=== PATIENT | female | born 1990 | race Asian ===

== ENCOUNTER 2017-08-06 10:35 | Outpatient (CLI) | payer OTHER ==
[~2017-08-06] VITALS: Ht 154.9 cm; Wt 77.1 kg
[2017-08-06 10:52] VITALS: BP 145/81; Ht 154.9 cm; Wt 77.1 kg
[2017-08-06] MEDS ORDERED: PREN-17 PO (10:54)
--- NOTE | 2017-08-06 11:03 | RADRPT ---
PROCEDURE: US OB biophysical profile. CLINICAL INDICATION: evaluation TECHNIQUE: Multiple sonographic images of the pelvis were obtained. The images were reviewed on a PACS workstation. COMPARISON: No prior studies are available for comparison. FINDINGS: There is a single viable intrauterine gestation. Cardiac activity is present with 159 beats per min [place]. There is a vertex presentation. The placenta is posterior. There is no evidence of placental abruption. There is a normal amount of amniotic fluid with an AMAURY = 12.0 cm. Biophysical profile: movement 2/2 tone 2/2. breathing 2/2 AMAURY 2/2 Total 05/01 RPTAT: AA . IMPRESSION: Normal biophysical profile. Physician Cyndi Date Time Electronically viewed and signed by Physician Cyndi on 08/06/2017 11:03 /
[2017-08-06 11:19] LABS: ADD UMIC YES; UR ASCORBIC ACID NEGATIVE (NEGATIVE); UR BACTERIA MANY /HPF (NONE SEEN); UR BILIRUBIN (Dip) NEGATIVE (NEGATIVE); UR BLOOD (Dip) NEGATIVE (NEGATIVE); UR CLARITY CLEAR (CLEAR); UR COLOR YELLOW (YELLOW); UR GLUCOSE (Dip) NEGATIVE (NEGATIVE); UR KETONES (Dip) NEGATIVE (NEGATIVE); UR LEUKOCYTE ESTERASE (Dip) TRACE Leu/ul (NEGATIVE); UR NITRITE (Dip) NEGATIVE (NEGATIVE); UR RBC 3 /HPF (0-5); UR SPECIFIC GRAVITY (Dip) 1.005 (1.003-1.030); UR TOTAL PROTEIN (Dip) NEGATIVE (NEGATIVE); UR UROBILINOGEN (Dip) NEGATIVE (NEGATIVE)
[2017-08-06 12:08] LABS: BASOPHIL # 0.1 10^3/ul (0.0-0.1); BASOPHILS % 0.7 % (0.0-2.0); EOSINOPHILS # 0.2 10^3/ul (0.0-0.5); EOSINOPHILS % 2.1 % (0.0-7.0); HEMATOCRIT 36.8 % (37.0-47.0); LYMPHOCYTES # 1.5 10^3/ul (0.8-2.9); LYMPHOCYTES % 13.1 % (15.0-51.0); MEAN CORPUSCULAR HEMOGLOBIN 24.1 pg (29.0-33.0); MEAN CORPUSCULAR HGB CONC 32.6 g/dl (32.0-37.0); MEAN PLATELET VOLUME 11.5 fl (7.4-10.4); MONOCYTE # 0.9 10^3/ul (0.3-0.9); MONOCYTES % 7.8 % (0.0-11.0); NEUTROPHIL # 8.3 10^3/ul (1.6-7.5); NEUTROPHILS % 72.6 % (39.0-77.0); PLATELET COUNT 205 10^3/UL (140-415); RED BLOOD COUNT 4.97 10^6/ul (4.20-5.40); RED CELL DISTRIBUTION WIDTH 14.9 % (11.5-14.5); WHITE BLOOD COUNT 11.5 10^3/ul (4.8-10.8)
[2017-08-06 12:29] LABS: INR 0.96; PROTIME 12.8 Sec (12.2-14.2)
[2017-08-06 12:31] LABS: PARTIAL THROMBOPLASTIN TIME 26.4 Sec (25.0-35.0)
[2017-08-06 12:33] LABS: BILIRUBIN,INDIRECT 0.1 mg/dl (0-1.1); BILIRUBIN,TOTAL 0.1 mg/dl (0.2-1.3); CALCIUM 9.3 mg/dl (8.4-10.2); CREATININE 0.59 mg/dl (0.44-1.00); POTASSIUM 4.3 mmol/L (3.5-5.1); URIC ACID 5.7 mg/dl (3.1-7.9)
--- NOTE | 2017-08-06 13:45 | RADRPT ---
PROCEDURE: Obstetrical ultrasound CLINICAL INDICATION: pih TECHNIQUE: Multiple sonographic images of the pelvis were obtained. The images were reviewed on a PACS workstation. COMPARISON: None FINDINGS: The cervix is not well visualized. There is a single viable intrauterine gestation. Cardiac activity is present with 161 beats per minute. There is a vertex presentation. The placenta is posterior. There is no evidence for an abruption or placenta previa. There is a subjectively normal amount of amniotic fluid. Measurements were made in order to determine age. The results are as follows (cm): BPD =7.57 HC =27.67 AC =26.83 FL =5.74 Estimated gestational age by ultrasound of approximately 30 weeks, 3 days. The estimated date of delivery by ultrasound is 10/12/2017. Estimated gestational age by LMP of approximately 31 weeks, 1 day. The estimated date of delivery by LMP is 10/07/2017. EFW = 1593 grams (20th percentile) IMPRESSION: Single viable intrauterine gestation of approximately 30 weeks, 3 days . The estimated date of delivery is 10/12/2017 . Dating by ultrasound is within 5 days of dating by LMP. Cephalic presentation. Estimated weight is in the 20th percentile. RPTAT: EE Physician Cyndi Date Time Electronically viewed and signed by Physician Cyndi on 08/06/2017 13:45 RA/
--- NOTE | 2017-08-06 14:28 | PN ---
Triage Information Date/Time Reason for visit: Weeks of Gestation 31w 1d /Para Hypertention: induced Objective Vital Signs Date Time Temp Pulse Resp B/P Pulse Ox O2 Delivery O2 Flow Rate FiO2 08/06/17 10:52 98.1 145/81 Room Air Heart Rate Comments reactive Contractions: None Results/Medications Result Diagram: 08/06/17 1145 08/06/17 1145 Results 24 hrs Laboratory Tests Test 08/06/17 10:41 08/06/17 11:45 Urine Color YELLOW Urine Clarity CLEAR Urine pH 7.0 Urine Specific [place] 1.005 Urine Ketones NEGATIVE Urine Nitrite NEGATIVE Urine Bilirubin NEGATIVE Urine Urobilinogen NEGATIVE Urine Leukocyte Esterase TRACE A Urine Microscopic RBC 3 Urine Microscopic WBC 6 H Urine Bacteria MANY A Urine Hemoglobin NEGATIVE Urine Glucose NEGATIVE Urine Total Protein NEGATIVE White Blood Count 11.5 H Red Blood Count 4.97 Hemoglobin 12.0 Hematocrit 36.8 L Mean Corpuscular Volume 74.0 L Mean Corpuscular Hemoglobin 24.1 L Mean Corpuscular Hemoglobin Concent 32.6 Red Cell Distribution Width 14.9 H Platelet Count 205 Mean Platelet Volume 11.5 H Neutrophils % 72.6 Lymphocytes % 13.1 L Monocytes % 7.8 Eosinophils % 2.1 Basophils % 0.7 Nucleated Red Blood Cells % 0.0 Neutrophils # 8.3 H Lymphocytes # 1.5 Monocytes # 0.9 Eosinophils # 0.2 Basophils # 0.1 Nucleated Red Blood Cells # 0.0 Prothrombin Time 12.8 Prothrombin Time Ratio 1.0 INR International Normalized Ratio 0.96 Activated Partial Thromboplast Time 26.4 Fibrinogen 457.0 Sodium Level 142 Potassium Level 4.3 Chloride Level 106 Carbon Dioxide Level 21 Anion Gap 19 H Blood Urea Nitrogen 6 L Creatinine 0.59 Glucose Level 76 Uric Acid 5.7 Calcium Level 9.3 Total Bilirubin 0.1 L Direct Bilirubin 0.00 Indirect Bilirubin 0.1 Aspartate Amino Transf (AST/SGOT) 22 Alanine Aminotransferase (ALT/SGPT) 20 Alkaline Phosphatase 102 Total Protein 8.0 Albumin 4.0 Globulin 4.00 H Albumin/Globulin Ratio 1.00 Imaging Results BPP 8/8, AMAURY 12cm, efw 1593g 20% Disposition: Discharge Assessment/Plan 27 y/o at 31w 1d with high BPs, chronic vs. pih -discharge home with preeclampsia precautions, 24 hour urine -f/u with OB HENRI PEDRAZA Aug 06, 2017 14:28
--- NOTE | 2017-08-06 14:29 | TRIAGE ---
OB Triage Datetime Report Generated by CPN: 08/06/2017 14:29 Datetime: 08/06/2017 13:40 Labor Evaluation Frequency: 0 Pattern: Normal: <= 5 Contractions in 10 Minutes Resting Tone [place]: Relaxed Heart Rate FHR Baseline Rate: 150 Monitor Mode: External US Variability: Moderate 6-25 bpm Accelerations: 15X15 Decelerations: None Category: Category I Pain Presence: None/Denies Datetime: 08/06/2017 12:40 Labor Evaluation Frequency: 0 Pattern: Normal: <= 5 Contractions in 10 Minutes Resting Tone [place]: Relaxed Heart Rate FHR Baseline Rate: 155 Monitor Mode: External US Variability: Moderate 6-25 bpm Accelerations: 15X15 Decelerations: None Category: Category I Pain Presence: None/Denies Pain Type: N/A Datetime: 08/06/2017 11:25 Stage of : OB Triage Labor Evaluation Frequency: 0 Monitor Mode: External Pattern: Normal: <= 5 Contractions in 10 Minutes Heart Rate FHR Baseline Rate: 155 Monitor Mode: External US Variability: Moderate 6-25 bpm Accelerations: 15X15 Decelerations: None Category: Category I Pain Assessment Pain Scale: 0 Pain Presence: None/Denies Pain Goal: 0 Datetime: 08/06/2017 10:56 Stage of : OB Triage Assessment Type: Triage Maternal Assessment Level of Consciousness: Fully Conscious DTR's/Clonus: DTRs 2+; No Clonus Headache: Denies Blurred Vision: No Respiratory Effort: Unlabored; Regular Rhythm; Equal Expansion Breath Sounds, Left: Clear and Equal Breath Sounds, Right: Clear and Equal Nausea/Vomiting: Denies RUQ Epigastric Pain: Denies Lower Extremities Edema: None Degree: None Upper Extremities Edema: None Degree: None Facial Edema: None Temperature Route: Oral Fall Risk Assessment History of Falling: (0) No Secondary Diagnosis: (0) No Ambulatory Aid: (0) Bedrest/Nurse Assist IV Therapy: (0) No Gait: (0) Normal/Bedrest/Immobile Mental Status: (0) Oriented to Own Ability Fall Score: 0 Fall Risk Score Definition: No Risk: No action required Labor Evaluation Frequency: INITIAL PLACEMENT Monitor Mode: External Monitor Mode: External US Pain Assessment Pain Scale: 0 Pain Presence: None/Denies Pain Type: N/A Datetime: 08/06/2017 10:55 Time of Arrival: 08/06/2017 10:30 EGA: 31.1 Arrived By: Ambulatory Arrived From: Dr. Flower Chief Complaint: SENT FROM CLINIC FOR PIH WORK UP Movement: Present Contractions: Denies/Absent Rupture of Membranes: Denies Vaginal Bleeding: None Vaginal Discharge: Denies Recent Sexual Intercouse: Denies Abdominal Trauma: Not Applicable Patient Complaints: Other Initial Plan: EFMX2, OIH WORK UP
[2017-08-07] MEDS ORDERED: CALC600T5 PO (16:15)
== END 2017-08-06 14:40 | disposition home or self-care (01) ==
LOC: EDBD → L-D 10:35 → OBT 10:35
PROVIDERS: ATTEND Obstetrics & Gynecology
DX: O11.3 Pre-existing hypertension with pre-eclampsia, third trimester (principal); Z3A.31 31 weeks gestation of pregnancy
CPT/HCPCS: 76816; 76818; 80053; 81001; 84560; 85025; 85384; 85610; 85730; Z7500; G0463

== ENCOUNTER 2017-08-07 15:36 | Outpatient (CLI) | payer OTHER ==
[~2017-08-07] VITALS: Ht 154.9 cm; Wt 75.4 kg
[~2017-08-07 15:36] MED LIST: PREN-17 PO
[2017-08-07 16:13] VITALS: BP 125/83; PULSE 113; Ht 154.9 cm; Wt 75.4 kg
[2017-08-07] MEDS ORDERED: CALC600T5 PO (16:15)
[2017-08-07] MEDS ORDERED: TERBUTALINE 1 MG/ML INJ SC ONE (17:00)
[2017-08-07] MEDS ORDERED: BETAMET NA PHOS/AC(6 MG/ML) 5ML INJ IM ONE ×2 (17:00)
[2017-08-07] MEDS ORDERED: LACTATED RINGER'S 1,000 ML IV SCH (17:00)
[2017-08-07] MEDS ORDERED: NIFEdipine 10 MG CAP PO ONE (17:00)
[2017-08-07 17:07] LABS: SCRET 0.63 mg/dl (0.44-1.00)
--- NOTE | 2017-08-07 17:18 | PN ---
Triage Information Date/Time August 07, 2017 Reason for visit: Referred back for bringing her 24 hour urine collection noticed to have uterine contractions Weeks of Gestation 32+ /Para 1 para 0 Diabetes: none Hypertention: induced Additional information Patient denies headache blurred vision or epigastric pain As total urine protein of 481 mg in 24 hours Objective Vital Signs Date Time Temp Pulse Resp B/P Pulse Ox O2 Delivery O2 Flow Rate FiO2 08/07/17 16:13 97.9 113 125/83 Heart Rate: 140's Heart Rate Comments Reactive Contractions: 6-10 Minutes Apart Exam Long and closed Results/Medications Result Diagram: 08/07/17 1615 Results 24 hrs Laboratory Tests Test 08/07/17 16:00 08/07/17 16:15 Urine Random Creatinine 29.62 Urine Collection Duration 24 Urine Total Volume 24 Hours 3700 Urine Creatinine Timed 24 Creatinine Clearance 120.8 Urine Total Volume (Protein) 3700 Urine Total Protein 24 Hour 481.0 H Creatinine 0.63 Medications Current Medications Lactated Ringer's (Lr) 1,000 ml @ 250 mls/hr Q4H IV Last administered on 08/07t 17:02; Admin Dose 250 MLS/HR; Start 08/07/17 at 17:00 Imaging Results Pending Assessment/Plan Patient stopped idania after subcutaneous terbutaline will DC home on p.o. nifedipine Biweekly antepartum testing Continue on p.o. nifedipine until 37 week Consider delivering at 37 weeks Provide steroids in this admission WAQAR ACKERMAN MD Aug 07, 2017 17:18
--- NOTE | 2017-08-07 17:31 | RADRPT ---
PROCEDURE: Limited obstetric ultrasound CLINICAL INDICATION: Pain TECHNIQUE: Multiple transverse and longitudinal grayscale images of the pelvis were obtained shen sabdominally and transvaginally.. COMPARISON: US 08/06/2017 FINDINGS: The cervix is closed with a length of 3.9 cm. There is a single viable intrauterine gestation. Cardiac activity is present with 154 beats per min [place]. There is a vertex presentation. The placenta is posterior. There is no evidence for an abruption or placenta previa. RPTAT: AA IMPRESSION: Cervix length measures 3.9 cm. .Tono Marie MD, Date Time Electronically viewed and signed by .Tono Marie MD, on 08/07/2017 17:31 .S/
--- NOTE | 2017-08-08 04:11 | TRIAGE ---
OB Triage Datetime Report Generated by CPN: 08/08/2017 04:11 Datetime: 08/07/2017 21:43 Stage of : OB Triage Labor Evaluation Frequency: Irregular Monitor Mode: External Duration (sec)2399: 40-80 Quality: Mild Pattern: Normal: <= 5 Contractions in 10 Minutes Resting Tone [place]: Relaxed Heart Rate FHR Baseline Rate: 150 Monitor Mode: External US Variability: Moderate 6-25 bpm Accelerations: 15X15 Decelerations: Variable Category: Category II Pain Assessment Pain Scale: 0 Pain Presence: None/Denies Pain Type: N/A Pain Assessment Comments: Pt continues to deny any pain or cramping. Datetime: 08/07/2017 21:41 Stage of : OB Triage Assessment Type: Triage Datetime: 08/07/2017 21:00 Stage of : OB Triage Labor Evaluation Frequency: Irregular Monitor Mode: External Duration (sec)2399: 40-100 Quality: Mild Pattern: Normal: <= 5 Contractions in 10 Minutes Resting Tone [place]: Relaxed Heart Rate FHR Baseline Rate: 155 Monitor Mode: External US FHR Baseline Changes: No Baseline Change Variability: Moderate 6-25 bpm Accelerations: 15X15 Decelerations: None Category: Category I Comments: Periods of loss of contact Datetime: 08/07/2017 20:58 Stage of : OB Triage Datetime: 08/07/2017 20:00 Stage of : OB Triage Labor Evaluation Frequency: 1-11 Monitor Mode: External Duration (sec)2399: 40-120 Quality: Mild Pattern: Normal: <= 5 Contractions in 10 Minutes Resting Tone [place]: Relaxed Heart Rate FHR Baseline Rate: 155 Monitor Mode: External US FHR Baseline Changes: No Baseline Change Variability: Moderate 6-25 bpm Accelerations: 15X15 Decelerations: None Category: Category I Datetime: 08/07/2017 19:25 Stage of : OB Triage Temperature Route: Oral Pain Assessment Pain Scale: 0 Pain Presence: None/Denies Pain Type: N/A Pain Assessment Comments: Pt denies any pain or cramping Datetime: 08/07/2017 19:00 Stage of : OB Triage Labor Evaluation Frequency: Irregular Monitor Mode: External Duration (sec)2399: 40-60 Quality: Mild Pattern: Normal: <= 5 Contractions in 10 Minutes Resting Tone [place]: Relaxed Heart Rate FHR Baseline Rate: 155 Monitor Mode: External US FHR Baseline Changes: No Baseline Change Variability: Moderate 6-25 bpm Accelerations: 15X15 Decelerations: None Category: Category I Datetime: 08/07/2017 18:25 Assessment Type: Triage Maternal Assessment Level of Consciousness: Fully Conscious DTR's/Clonus: DTRs 2+; No Clonus Headache: Denies Blurred Vision: No Respiratory Effort: Unlabored; Regular Rhythm; Equal Expansion Breath Sounds, Left: Clear and Equal Breath Sounds, Right: Clear and Equal Nausea/Vomiting: Denies RUQ Epigastric Pain: Denies Lower Extremities Edema: None Degree: None Upper Extremities Edema: None Degree: None Facial Edema: None Fall Risk Assessment History of Falling: (0) No Secondary Diagnosis: (0) No Ambulatory Aid: (0) Bedrest/Nurse Assist IV Therapy: (0) No Gait: (0) Normal/Bedrest/Immobile Mental Status: (0) Oriented to Own Ability Fall Score: 0 Fall Risk Score Definition: No Risk: No action required Datetime: 08/07/2017 18:00 Labor Evaluation Frequency: 0 Monitor Mode: External Pattern: Normal: <= 5 Contractions in 10 Minutes Resting Tone [place]: Relaxed Heart Rate FHR Baseline Rate: 155 Monitor Mode: External US Accelerations: None Decelerations: None Category: Category II Pain Assessment Pain Scale: 0 Pain Presence: None/Denies Pain Type: N/A Pain Goal: 3 Pain Relief Measures: Comfort Measures Datetime: 08/07/2017 17:28 Labor Evaluation Frequency: 0 Monitor Mode: External Resting Tone [place]: Relaxed Heart Rate FHR Baseline Rate: 155 Monitor Mode: External US Variability: Moderate 6-25 bpm Accelerations: 10X10 Decelerations: None Category: Category I Pain Assessment Pain Scale: 0 Pain Presence: None/Denies Pain Type: N/A Pain Goal: 3 Pain Relief Measures: Comfort Measures Datetime: 08/07/2017 16:59 Monitor Mode: External US Comments: loss of contact Datetime: 08/07/2017 16:36 Stage of : OB Triage Datetime: 08/07/2017 16:34 Stage of : OB Triage Datetime: 08/07/2017 16:08 Stage of : OB Triage Assessment Type: Triage Maternal Assessment Level of Consciousness: Fully Conscious DTR's/Clonus: DTRs 2+; No Clonus Headache: Denies Blurred Vision: No Respiratory Effort: Unlabored; Regular Rhythm; Equal Expansion Breath Sounds, Left: Clear and Equal Breath Sounds, Right: Clear and Equal Nausea/Vomiting: Denies RUQ Epigastric Pain: Denies Facial Edema: None Temperature Route: Axillary Fall Risk Assessment History of Falling: (0) No Secondary Diagnosis: (0) No Ambulatory Aid: (0) Bedrest/Nurse Assist IV Therapy: (0) No Gait: (0) Normal/Bedrest/Immobile Mental Status: (0) Oriented to Own Ability Fall Score: 0 Fall Risk Score Definition: No Risk: No action required Labor Evaluation Frequency: 8-10 Monitor Mode: External Duration (sec)2399: 70-80 Quality: Mild Pattern: Normal: <= 5 Contractions in 10 Minutes Resting Tone [place]: Relaxed Heart Rate FHR Baseline Rate: 145 Monitor Mode: External US Variability: Moderate 6-25 bpm Accelerations: 10X10 Decelerations: None Category: Category I Pain Assessment Pain Scale: 0 Pain Presence: None/Denies Pain Type: N/A Pain Goal: 3 Pain Relief Measures: Comfort Measures Datetime: 08/07/2017 16:06 Time of Arrival: 08/07/2017 15:24 EGA: 31.2 Arrived By: Ambulatory Arrived From: Home Chief Complaint: FOLLOW UP WITH 24 HOUR URINE, DENIES BLEEDING, LEAKING OR UC'S Movement: Present Contractions: Denies/Absent Rupture of Membranes: Denies Vaginal Bleeding: None Vaginal Discharge: Denies Recent Sexual Intercouse: Denies Abdominal Trauma: Not Applicable Patient Complaints: None Time Provider Notified: 08/07/2017 15:51 Provider Notified: Initial Plan: MONITOR, Datetime: 08/07/2017 15:51 Stage of : OB Triage Datetime: 08/06/2017 10:56 Fall Score: 0 Fall Risk Score Definition: No Risk: No action required Datetime: 08/06/2017 10:55 EGA: 31.1
[2017-08-08] MEDS ORDERED: BETAMET NA PHOS/AC(6 MG/ML) 5ML INJ IM ONE (17:30)
[2017-08-08] MEDS ORDERED: NIFE10CA19 PO (18:08)
== END 2017-08-07 21:58 | disposition home or self-care (01) ==
LOC: OBT 15:36 → L-D 15:37 → OBT 21:58
PROVIDERS: ATTEND Obstetrics & Gynecology
DX: O62.9 Abnormality of forces of labor, unspecified (principal); Z3A.32 32 weeks gestation of pregnancy; O16.3 Unspecified maternal hypertension, third trimester
CPT/HCPCS: 76817; 82565; 82575; 84156; J0702; J3105; J7120; Z7610

== ENCOUNTER 2017-08-08 17:16 | Outpatient (CLI) | payer OTHER ==
[~2017-08-08] VITALS: Ht 154.9 cm; Wt 75.4 kg
[~2017-08-08 17:16] MED LIST changes: +CALC600T5 PO
[2017-08-08 17:59] VITALS: Ht 154.9 cm; Wt 75.4 kg
[2017-08-08 18:00] VITALS: BP 118/64; PULSE 125; RESP 18
[2017-08-08] MEDS ORDERED: BETAMET NA PHOS/AC(6 MG/ML) 5ML INJ IM ONE (18:00)
--- NOTE | 2017-08-08 18:05 | PN ---
Triage Information Date/Time 08/08/2017 Reason for visit: here for 2nd dose of steroids Weeks of Gestation 31+ /Para 1/0 Diabetes: none Hypertention: induced Objective Heart Rate: 140's Contractions: None Exam deferred Results/Medications Medications betamethasone given Disposition: Discharge Assessment/Plan F/U with biweekly NST and BPP WAQAR ACKERMAN MD Aug 08, 2017 18:05
[2017-08-08] MEDS ORDERED: NIFE10CA19 PO (18:08)
--- NOTE | 2017-08-08 20:24 | TRIAGE ---
OB Triage Datetime Report Generated by CPN: 08/08/2017 20:24 Datetime: 08/08/2017 19:26 Stage of : OB Triage Datetime: 08/08/2017 19:22 Stage of : OB Triage FHR Baseline Rate: 145 Monitor Mode: External US Variability: Moderate 6-25 bpm Accelerations: 15X15 Decelerations: None Category: Category I Comments: APPROPRIATE FOR GESTATIONAL AGE. Datetime: 08/08/2017 18:19 Frequency: none Monitor Mode: External FHR Baseline Rate: 140 Monitor Mode: External US Variability: Moderate 6-25 bpm Accelerations: 15X15 Decelerations: None Pain Scale: 0 Pain Presence: None/Denies Pain Type: N/A Pain Goal: 0 Membrane Status: Intact Datetime: 08/08/2017 17:46 Level of Consciousness: Fully Conscious DTR's/Clonus: DTRs 2+; No Clonus Headache: Denies Blurred Vision: No Respiratory Effort: Unlabored; Regular Rhythm; Equal Expansion Breath Sounds, Left: Clear and Equal Breath Sounds, Right: Clear and Equal Nausea/Vomiting: Denies RUQ Epigastric Pain: Denies Lower Extremities Edema: None Degree: None Upper Extremities Edema: None Degree: None Facial Edema: None History of Falling: (0) No Secondary Diagnosis: (0) No Ambulatory Aid: (0) Bedrest/Nurse Assist IV Therapy: (0) No Gait: (0) Normal/Bedrest/Immobile Mental Status: (0) Oriented to Own Ability Fall Score: 0 Fall Risk Score Definition: No Risk: No action required Datetime: 08/08/2017 17:45 Frequency: none Monitor Mode: External FHR Baseline Rate: 160 Monitor Mode: External US Variability: Minimal - Undetectable to <=5 bpm Accelerations: 15X15 Decelerations: None Pain Scale: 0 Pain Presence: None/Denies Pain Type: N/A Pain Goal: 0 Membrane Status: Intact Datetime: 08/08/2017 17:25 Monitor Mode: External Contraction Comments: DENIES FHR Baseline Rate: 156 (Annotations: auscultated) Monitor Mode: External US Comments: PLACED ON MONITOR BY A RONA ANDERSON Pain Scale: 0 Pain Presence: None/Denies Pain Type: N/A Pain Goal: 0 Datetime: 08/08/2017 17:10 Time of Arrival: 08/08/2017 17:10 EGA: 31.3 Arrived By: Ambulatory Arrived From: Home Chief Complaint: PT WAS SEEN YESTERDAY IN TRIAGE WHEN SHE RETURNED A 24 HR URINE( TOTAL PROTEIN 48 1;CREATININE CLEARANCE 12.8), UCS NOTED _ PT RECEIVED IV HYDRATION, TERBUTALINE _ BETAMETHASONE. WAS SENT HOME WITH A PO PROCARDIA PRESCRIPTION WHICH SHE TOOK 3 X TODAY @ 0500, 1100 _ 1700. RETURNED F OR 2ND DOSE OF BETAMETHASONE _ "LABWORK" Movement: Present Contractions: Denies/Absent Rupture of Membranes: Denies Vaginal Bleeding: None Vaginal Discharge: Denies Recent Sexual Intercouse: Denies Abdominal Trauma: Not Applicable Patient Complaints: None Time Provider Notified: 08/08/2017 17:50 Initial Plan: BETAMETHASONE #2 DOSE, MONITOR FOR UCS, LABWORK ORDERED Datetime: 08/07/2017 20:15 Stage of : OB Triage Datetime: 08/07/2017 18:25 Fall Score: 0 Fall Risk Score Definition: No Risk: No action required Datetime: 08/07/2017 16:08 Fall Score: 0 Fall Risk Score Definition: No Risk: No action required Datetime: 08/07/2017 16:06 EGA: 31.2 Datetime: 08/06/2017 10:56 Fall Score: 0 Fall Risk Score Definition: No Risk: No action required Datetime: 08/06/2017 10:55 EGA: 31.1
== END 2017-08-08 19:35 | disposition home or self-care (01) ==
LOC: OBT 17:16 → L-D 17:18 → OBT 19:35
PROVIDERS: ATTEND Obstetrics & Gynecology
DX: O26.893 Other specified pregnancy related conditions, third trimester (principal); Z79.52 Long term (current) use of systemic steroids; Z3A.31 31 weeks gestation of pregnancy
CPT/HCPCS: 96372; Z7500; G0463

== ENCOUNTER 2017-09-13 16:39 | Outpatient (CLI) | payer OTHER ==
[~2017-09-13] VITALS: Ht 154.9 cm; Wt 79.7 kg
[~2017-09-13 16:39] MED LIST changes: +NIFE10CA19 PO
[2017-09-13 16:44] VITALS: Ht 154.9 cm; Wt 79.7 kg
[2017-09-13 17:00] VITALS: BP 125/75; PULSE 93; RESP 18
[2017-09-13] MEDS ORDERED: PREN-93 PO (17:03)
[2017-09-13 17:38] LABS: BASOPHILS % 0.4 % (0.0-2.0); EOSINOPHILS # 0.2 10^3/ul (0.0-0.5); EOSINOPHILS % 1.6 % (0.0-7.0); HEMATOCRIT 35.3 % (37.0-47.0); HEMOGLOBIN 11.8 g/dl (12.0-16.0); LYMPHOCYTES # 1.3 10^3/ul (0.8-2.9); LYMPHOCYTES % 12.9 % (15.0-51.0); MEAN CORPUSCULAR HEMOGLOBIN 24.4 pg (29.0-33.0); MEAN CORPUSCULAR HGB CONC 33.4 g/dl (32.0-37.0); MEAN CORPUSCULAR VOLUME 73.1 fl (82.0-101.0); MEAN PLATELET VOLUME 11.4 fl (7.4-10.4); MONOCYTES % 9.7 % (0.0-11.0); NEUTROPHIL # 7.6 10^3/ul (1.6-7.5); NEUTROPHILS % 73.1 % (39.0-77.0); PLATELET COUNT 205 10^3/UL (140-415); RED BLOOD COUNT 4.83 10^6/ul (4.20-5.40); RED CELL DISTRIBUTION WIDTH 15.1 % (11.5-14.5); WHITE BLOOD COUNT 10.4 10^3/ul (4.8-10.8)
--- NOTE | 2017-09-13 17:44 | RADRPT ---
PROCEDURE: US OB. CLINICAL INDICATION: Hypertension TECHNIQUE: Multiple sonographic images of the pelvis were obtained. The images were reviewed on a PACS workstation. COMPARISON: 08/06/2017 FINDINGS: There is a single live intrauterine . cardiac activity is identified at a rate of 15 7 beats per minute. presentation is cephalic. Placenta is posterior grade II. Biophysical profile score is as follows: Breathing 2 Movements 2 Tone 2 Fluid volume 2 Amniotic fluid index = 11.67 cm Total biophysical profile score = 8/8 IMPRESSION: Biophysical profile score = 8 RPTAT: HH .J Luis Jackson MD, MD Date Time Electronically viewed and signed by .J Luis Jackson MD, on 09/13/2017 17:44 .W/
[2017-09-13 17:52] LABS: ADD UMIC YES; UR ASCORBIC ACID 20 mg/dL (NEGATIVE); UR BACTERIA MODERATE /HPF (NONE SEEN); UR BILIRUBIN (Dip) NEGATIVE (NEGATIVE); UR BLOOD (Dip) 2+ mg/dL (NEGATIVE); UR CLARITY CLEAR (CLEAR); UR COLOR YELLOW (YELLOW); UR GLUCOSE (Dip) NEGATIVE (NEGATIVE); UR KETONES (Dip) NEGATIVE (NEGATIVE); UR LEUKOCYTE ESTERASE (Dip) NEGATIVE Leu/ul (NEGATIVE); UR MUCUS FEW /HPF (NONE SEEN); UR NITRITE (Dip) NEGATIVE (NEGATIVE); UR RBC 1 /HPF (0-5); UR SPECIFIC GRAVITY (Dip) 1.012 (1.003-1.030); UR TOTAL PROTEIN (Dip) NEGATIVE (NEGATIVE); UR UROBILINOGEN (Dip) NEGATIVE (NEGATIVE)
[2017-09-13 18:10] LABS: ALBUMIN 3.7 g/dl (3.3-4.9); ALBUMIN/GLOBULIN RATIO 0.9; CALCIUM 9.5 mg/dl (8.4-10.2); CREATININE 0.7 mg/dl (0.44-1.00); POTASSIUM 4.2 mmol/L (3.5-5.1); TOTAL PROTEIN 7.8 g/dl (6.1-8.1)
--- NOTE | 2017-09-13 21:37 | TRIAGE ---
OB Triage Datetime Report Generated by CPN: 09/13/2017 21:37 Datetime: 09/13/2017 20:37 Stage of : OB Triage Datetime: 09/13/2017 20:00 Labor Evaluation Frequency: IRREGULAR Monitor Mode: External Duration (sec)2399: 40-100 Quality: Mild Pattern: Normal: <= 5 Contractions in 10 Minutes Resting Tone [place]: Relaxed Heart Rate FHR Baseline Rate: 145 Monitor Mode: External US FHR Baseline Changes: No Baseline Change Variability: Moderate 6-25 bpm Accelerations: 15X15 Decelerations: Variable Category: Category I Datetime: 09/13/2017 19:55 Vaginal Exam Dilatation (cms): 0.0 Effacement (%): 0 Station: -3 Exam By: Miki TORRES RN Vaginal Bleeding: None Cervix, Consistency: Firm Cervix, Position: Posterior Datetime: 09/13/2017 19:20 Assessment Type: Ongoing Assessment Maternal Assessment Level of Consciousness: Fully Conscious DTR's/Clonus: DTRs 2+; No Clonus Headache: Denies Blurred Vision: No Respiratory Effort: Unlabored; Regular Rhythm; Equal Expansion Breath Sounds, Left: Clear and Equal Breath Sounds, Right: Clear and Equal Nausea/Vomiting: Denies RUQ Epigastric Pain: Denies Lower Extremities Edema: None Degree: None Upper Extremities Edema: None Degree: None Facial Edema: None Fall Risk Assessment History of Falling: (0) No Secondary Diagnosis: (0) No Ambulatory Aid: (0) Bedrest/Nurse Assist IV Therapy: (0) No Gait: (0) Normal/Bedrest/Immobile Mental Status: (0) Oriented to Own Ability Fall Score: 0 Fall Risk Score Definition: No Risk: No action required Datetime: 09/13/2017 18:52 Labor Evaluation Frequency: IRREG Monitor Mode: External Duration (sec)2399: 50-70 Pattern: Normal: <= 5 Contractions in 10 Minutes Resting Tone [place]: Relaxed Heart Rate FHR Baseline Rate: 130 Monitor Mode: External US Variability: Moderate 6-25 bpm Accelerations: 15X15 Decelerations: Variable Category: Category II Pain Assessment Pain Presence: None/Denies Datetime: 09/13/2017 18:00 Labor Evaluation Frequency: X1 Monitor Mode: External Duration (sec)2399: 100 Pattern: Normal: <= 5 Contractions in 10 Minutes Resting Tone [place]: Relaxed Heart Rate FHR Baseline Rate: 140 Monitor Mode: External US Variability: Moderate 6-25 bpm Accelerations: 15X15 Decelerations: Variable Category: Category II Datetime: 09/13/2017 17:14 Assessment Type: Admission Assessment Maternal Assessment Level of Consciousness: Fully Conscious DTR's/Clonus: DTRs 2+; No Clonus Headache: Denies Blurred Vision: No Respiratory Effort: Unlabored; Regular Rhythm; Equal Expansion Breath Sounds, Left: Clear and Equal Breath Sounds, Right: Clear and Equal Nausea/Vomiting: Denies RUQ Epigastric Pain: Denies Lower Extremities Edema: None Degree: None Upper Extremities Edema: None Degree: None Facial Edema: None Fall Risk Assessment History of Falling: (0) No Secondary Diagnosis: (0) No Ambulatory Aid: (0) Bedrest/Nurse Assist IV Therapy: (0) No Gait: (0) Normal/Bedrest/Immobile Mental Status: (0) Oriented to Own Ability Fall Score: 0 Fall Risk Score Definition: No Risk: No action required Datetime: 09/13/2017 17:09 Time of Arrival: 09/13/2017 16:35 EGA: 36.4 Arrived By: Ambulatory Arrived From: Home Chief Complaint: PT. CAME IN WITH OB TRIAGE REFERRAL FOR PIH, NST, BPP FROM YESTERDAY AT [facility] TO ELEVATED BP'S. Movement: Present Contractions: Denies/Absent Rupture of Membranes: Denies Vaginal Bleeding: None Vaginal Discharge: Denies Recent Sexual Intercouse: Denies Abdominal Trauma: Not Applicable Patient Complaints: None Time Provider Notified: 09/13/2017 18:20 Provider Notified: LEONARD Initial Plan: TOCO/ US, PIH LABS, BPP Datetime: 09/13/2017 16:50 Pain Assessment Pain Presence: None/Denies Datetime: 09/13/2017 16:48 Stage of : OB Triage Datetime: 08/08/2017 17:46 Fall Score: 0 Fall Risk Score Definition: No Risk: No action required Datetime: 08/08/2017 17:10 EGA: 31.3 Datetime: 08/07/2017 18:25 Fall Score: 0 Fall Risk Score Definition: No Risk: No action required Datetime: 08/07/2017 16:08 Fall Score: 0 Fall Risk Score Definition: No Risk: No action required Datetime: 08/07/2017 16:06 EGA: 31.2 Datetime: 08/06/2017 10:56 Fall Score: 0 Fall Risk Score Definition: No Risk: No action required Datetime: 08/06/2017 10:55 EGA: 31.1
--- NOTE | 2017-09-13 22:15 | PN ---
Triage Information Date/Time 09/13/17 Reason for visit: HTN Weeks of Gestation 36w 4d /Para primigravida Diabetes: none Hypertention: induced Additional information scheduled for induction of labor on 09/18/17 been on labetalol 200mg BID for the last 2mo Objective Vital Signs Date Time Temp Pulse Resp B/P Pulse Ox O2 Delivery O2 Flow Rate FiO2 09/13/17 17:00 97.9 93 18 125/75 Room Air Exam VE closed /long/-3 Results/Medications Result Diagram: 09/13/175 09/13/17 165 Results 24 hrs Laboratory Tests Test 09/13/17 16:55 09/13/17 17:00 White Blood Count 10.4 Red Blood Count 4.83 Hemoglobin 11.8 L Hematocrit 35.3 L Mean Corpuscular Volume 73.1 L Mean Corpuscular Hemoglobin 24.4 L Mean Corpuscular Hemoglobin Concent 33.4 Red Cell Distribution Width 15.1 H Platelet Count 205 Mean Platelet Volume 11.4 H Neutrophils % 73.1 Lymphocytes % 12.9 L Monocytes % 9.7 Eosinophils % 1.6 Basophils % 0.4 Nucleated Red Blood Cells % 0.0 Neutrophils # 7.6 H Lymphocytes # 1.3 Monocytes # 1.0 H Eosinophils # 0.2 Basophils # 0.0 Nucleated Red Blood Cells # 0.0 Sodium Level 135 Potassium Level 4.2 Chloride Level 101 Carbon Dioxide Level 24 Anion Gap 14 Blood Urea Nitrogen 9 Creatinine 0.70 Glucose Level 93 Uric Acid 6.0 Calcium Level 9.5 Total Bilirubin 0.0 L Direct Bilirubin 0.00 Indirect Bilirubin 0.0 Aspartate Amino Transf (AST/SGOT) 30 Alanine Aminotransferase (ALT/SGPT) 31 Alkaline Phosphatase 140 H Total Protein 7.8 Albumin 3.7 Globulin 4.10 H Albumin/Globulin Ratio 0.90 Urine Color YELLOW Urine Clarity CLEAR Urine pH 6.0 Urine Specific [place] 1.012 Urine Ketones NEGATIVE Urine Nitrite NEGATIVE Urine Bilirubin NEGATIVE Urine Urobilinogen NEGATIVE Urine Leukocyte Esterase NEGATIVE Urine Microscopic RBC 1 Urine Microscopic WBC 4 Urine Bacteria MODERATE Urine Mucus FEW A Urine Hemoglobin 2+ H Urine Glucose NEGATIVE Urine Total Protein NEGATIVE Imaging Results BPP8/8 AMAURY 11.67 Disposition: Discharge Assessment/Plan IUP 36w4d PIH/ ch HTN discharge home today RTH in 3days for repeat NST and BPP MARC RADFORD MD Sep 13, 2017 22:15
== END 2017-09-13 20:37 | disposition home or self-care (01) ==
LOC: OBT 16:39 → L-D 16:41 → OBT 20:37
PROVIDERS: ATTEND Obstetrics & Gynecology
DX: O13.3 Gestational [pregnancy-induced] hypertension without significant proteinuria, third trimester (principal); Z3A.36 36 weeks gestation of pregnancy
CPT/HCPCS: 76818; 80053; 81001; 84560; 85025; Z7500; G0463

== ENCOUNTER 2017-09-16 09:53 | Outpatient (CLI) | payer OTHER ==
[~2017-09-16] VITALS: Ht 154.9 cm; Wt 77.8 kg
[~2017-09-16 09:53] MED LIST changes: +PREN-93 PO
[2017-09-16 10:17] VITALS: Ht 154.9 cm; Wt 77.8 kg
[2017-09-16] MEDS ORDERED: LABE200T3 PO (10:17)
[2017-09-16] MEDS ORDERED: FER325 PO (10:17)
[2017-09-16 10:18] VITALS: BP 118/77; PULSE 110; RESP 18
--- NOTE | 2017-09-16 11:00 | RADRPT ---
PROCEDURE: US biophysical profile. CLINICAL INDICATION: Decreased motion. TECHNIQUE: Multiple sonographic images of the uterus were obtained. The images were revi ewed on a PACS workstation. COMPARISON: September 13, 2017. FINDINGS: There is a single live intrauterine gestation. heart rate is 146 beats per minute. The position is cephalic. The placenta is posterior grade II with no abruption or previa. The AMAURY is 10.1 cm. (Normal = 5-20 cm.) Breathing Movement: 2 Gross Body Movement: 2 Tone: 2 Qualitative Amniotic Fluid Volume: 2 TOTAL: 8 IMPRESSION: 1. The biophysical score is 8/8. RPTAT: QQ .Sohail Manzanares MD, MD Date Time Electronically viewed and signed by .Sohail Manzanares MD, on 09/16/2017 10:59 .R/
--- NOTE | 2017-09-16 11:47 | TRIAGE ---
OB Triage Datetime Report Generated by CPN: 09/16/2017 11:47 Datetime: 09/16/2017 10:10 Assessment Type: Triage Maternal Assessment Level of Consciousness: Fully Conscious DTR's/Clonus: DTRs 2+; No Clonus Headache: Denies Blurred Vision: No Respiratory Effort: Unlabored; Regular Rhythm; Equal Expansion Breath Sounds, Left: Clear and Equal Breath Sounds, Right: Clear and Equal Nausea/Vomiting: Denies RUQ Epigastric Pain: Denies Lower Extremities Edema: None Degree: None Upper Extremities Edema: None Degree: None Facial Edema: None Fall Risk Assessment History of Falling: (0) No Secondary Diagnosis: (0) No Ambulatory Aid: (0) Bedrest/Nurse Assist IV Therapy: (0) No Gait: (0) Normal/Bedrest/Immobile Mental Status: (0) Oriented to Own Ability Fall Score: 0 Fall Risk Score Definition: No Risk: No action required Datetime: 09/16/2017 10:09 Labor Evaluation Monitor Mode: External Heart Rate Monitor Mode: External US Datetime: 09/16/2017 09:59 Time of Arrival: 09/16/2017 09:46 EGA: 37.0 Arrived By: Ambulatory Arrived From: Home Chief Complaint: PT HERE FOR NST/BPP FOR HBP Movement: Present Contractions: Denies/Absent Rupture of Membranes: Denies Vaginal Bleeding: None Vaginal Discharge: Denies Recent Sexual Intercouse: Denies Abdominal Trauma: Not Applicable Patient Complaints: None Time Provider Notified: 09/16/2017 10:25 Provider Notified: LEONARD Initial Plan: NST/BPP Datetime: 09/13/2017 19:20 Fall Score: 0 Fall Risk Score Definition: No Risk: No action required Datetime: 09/13/2017 17:14 Fall Score: 0 Fall Risk Score Definition: No Risk: No action required Datetime: 09/13/2017 17:09 EGA: 36.4 Datetime: 08/08/2017 17:46 Fall Score: 0 Fall Risk Score Definition: No Risk: No action required Datetime: 08/08/2017 17:10 EGA: 31.3 Datetime: 08/07/2017 18:25 Fall Score: 0 Fall Risk Score Definition: No Risk: No action required Datetime: 08/07/2017 16:08 Fall Score: 0 Fall Risk Score Definition: No Risk: No action required Datetime: 08/07/2017 16:06 EGA: 31.2 Datetime: 08/06/2017 10:56 Fall Score: 0 Fall Risk Score Definition: No Risk: No action required Datetime: 08/06/2017 10:55 EGA: 31.1
--- NOTE | 2017-09-16 11:50 | PN ---
Triage Information Date/Time Reason for visit: Weeks of Gestation Patient is a 27-year-old 1 para 0 at 37 weeks of gestation with estimated date of delivery October 07, 2017 Patient has been diagnosed with PIH and currently on labetalol 200 mg p.o. twice daily She is here today for NST and biophysical profile Patient reports positive movement, no uterine contractions, no leaking fluid and no vaginal bleeding Patient is scheduled for induction on September 18, 2017 /Para 1 para 0 Diabetes: none Hypertention: induced Objective Vital Signs Date Time Temp Pulse Resp B/P Pulse Ox O2 Delivery O2 Flow Rate FiO2 09/16/17 10:18 99.0 110 18 118/77 98 Room Air Heart Rate: 140's Heart Rate Comments heart rate tracing category 1 Contractions: None Results/Medications Imaging Results PROCEDURE: US biophysical profile. CLINICAL INDICATION: Decreased motion. TECHNIQUE: Multiple sonographic images of the uterus were obtained. The images were reviewed on a PACS workstation. COMPARISON: September 13, 2017. FINDINGS: There is a single live intrauterine gestation. heart rate is 146 beats per minute. The position is cephalic. The placenta is posterior grade II with no abruption or previa. The AMAURY is 10.1 cm. (Normal = 5-20 cm.) Breathing Movement: 2 Gross Body Movement: 2 Tone: 2 Qualitative Amniotic Fluid Volume: 2 TOTAL: 8 IMPRESSION: 1. The biophysical score is 8/8. RPTAT: QQ .Sohail Manzanares MD, MD Date Time Electronically viewed and signed by .Sohail Manzanares MD, MD on 09/16/2017 10:59 .R/ CC: WAQAR ACKERMAN MD Disposition: Discharge Assessment/Plan kick count instructions were given Labor precautions were given Patient to return in September 18, 2017 for scheduled induction for PIH CYNTHIA LEDESMA MD Sep 16, 2017 11:50
[2017-09-21] MEDS ORDERED: IBUP800T25 PO (17:13)
== END 2017-09-16 11:55 | disposition home or self-care (01) ==
LOC: OBT 09:53 → L-D 09:55 → OBT 11:55
PROVIDERS: ATTEND Obstetrics & Gynecology
DX: O13.3 Gestational [pregnancy-induced] hypertension without significant proteinuria, third trimester (principal); Z3A.37 37 weeks gestation of pregnancy
CPT/HCPCS: 76818; Z7500; G0463

== ENCOUNTER 2017-09-18 08:47 | Inpatient (IN) | END 2017-09-22 14:55 | disposition home or self-care (01) | DRG 766 ==

== ENCOUNTER 2017-10-05 09:12 | Emergency (ER) | END 2017-10-05 14:31 | disposition home or self-care (01) ==